=== PATIENT | female | born 1940 | race Caucasian/White ===

== ENCOUNTER 2020-03-10 06:03 | Inpatient (IN) ==
[~2020-03-10 06:03] MED LIST: ASPIRIN 325 MG TABLET PO ONE; DIAZEPAM 5 MG TABLET PO ONE; MAGNESIUM SULF RIDER 2 GM in PREMIX 1 EACH IV PRN; POTASSIUM CHLORIDE RIDER 10 MEQ in PREMIX 1 EACH IV PRN; diphenhydrAMINE CAP 25 MG CAPSULE PO ONE
[2020-03-10] MEDS ORDERED: HEPARIN/NACL 0.9% 2 UNITS/ML 1,000 ML IV ONE (06:41)
[2020-03-10] MEDS ORDERED: ASPIRIN 325 MG TABLET ONE (06:48)
[2020-03-10] MEDS ORDERED: diphenhydrAMINE CAP 25 MG CAPSULE ONE (06:48)
[2020-03-10] MEDS ORDERED: DIAZEPAM 5 MG TABLET ONE (06:48)
[2020-03-10] MEDS: DEXTROSE 5% NACL 0.45% 1,000 ML IV SCH ×2 (06:49→15:54)
[2020-03-10] MEDS ORDERED: LIDOCAINE 1% 20 ML VIAL ONE (07:21)
[2020-03-10] MEDS ORDERED: NITROGLYCERIN DRIP 50 MG/250 ML BOTTLE IV ONE (07:21)
[2020-03-10] MEDS ORDERED: fentaNYL 100 MCG/2 ML VIAL ONE (07:21)
[2020-03-10] MEDS ORDERED: MIDAZOLAM 2 MG/2 ML VIAL ONE (07:21)
[2020-03-10] MEDS ORDERED: VERAPAMIL 5 MG/2 ML VIAL ONE (07:22)
[2020-03-10] MEDS ORDERED: ONDANSETRON 4 MG/2 ML VIAL ONE (07:29)
[2020-03-10] MEDS ORDERED: ENOXAPARIN 30 MG/0.3 ML SYRINGE ONE (07:45)
[2020-03-10] MEDS ORDERED: TIROFIBAN 5,000 MCG/100 ML PREMIX IV ONE (07:55)
[2020-03-10] MEDS ORDERED: NITROPRUSSIDE 50 MG/2 ML VIAL ONE (08:15)
[2020-03-10] MEDS ORDERED: MORPHINE 10 MG/1 ML VIAL ONE (08:18)
[2020-03-10] MEDS ORDERED: CLOPIDOGREL 300 MG TABLET ONE (08:29)
[2020-03-10] MEDS ORDERED: NITROGLYCERIN SL 0.4 MG TABLET SL PRN (09:00)
[2020-03-10] MEDS ORDERED: PNEUMOCOCCAL VACCINE (13 VALENT) 0.5 ML SYRINGE IM ONE (09:28)
[2020-03-10] MEDS ORDERED: NOREPINEPHRINE 8 MG in SODIUM CHLORIDE 0.9% 242 ML IV PRN (09:47)
[2020-03-10] MEDS ORDERED: SODIUM CHLORIDE 0.9% 500 ML IV ONE (09:47)
[2020-03-10] MEDS ORDERED: SODIUM CHLORIDE 0.9% 1,000 ML IV ONE (10:00)
[2020-03-10] MEDS ORDERED: ALUMINUM/MAGNES/SIMETH MAX STR 30 ML UDCUP PO PRN (10:09)
[2020-03-10] MEDS: ALPRAZolam 0.25 MG TABLET PO SCH ×2 (10:16→20:23)
[2020-03-10] MEDS: LEVOTHYROXINE 88 MCG TABLET PO SCH (10:16)
[2020-03-10] MEDS: CARBIDOPA/LEVODOPA 25-100 MG TABLET PO SCH ×4 (10:16→20:23)
[2020-03-10] MEDS: ursodioL 300 MG CAPSULE PO SCH ×2 (10:21→20:23)
[2020-03-10] MEDS: PANTOPRAZOLE 40 MG TABLET PO SCH ×3 (10:21→20:23)
[2020-03-10] MEDS: FLUoxetine 20 MG CAPSULE PO SCH (10:22)
[2020-03-10] MEDS ORDERED: NITROGLYCERIN DRIP 50 MG/250 ML BOTTLE IV PRN (10:32)
[2020-03-10] MEDS: fentaNYL 100 MCG/2 ML VIAL IV PRN (11:50)
[2020-03-10] MEDS: MIRTAZAPINE 15 MG TABLET PO SCH (20:23)
[2020-03-10] MEDS: METOPROLOL TARTRATE 25 MG TABLET PO SCH (20:25)
[2020-03-11] MEDS: DEXTROSE 5% NACL 0.45% 1,000 ML IV SCH ×3 (03:10→22:59)
[2020-03-11 03:44] LABS: Basophils % 0.3 % (0.0-0.8); Eosinophils # 0.1 10*3/uL (0.0-0.87); Eosinophils % 0.6 % (0.00-10.9); Hematocrit 32.4 VOL% (35.7-47.0); Hemoglobin 10.2 GM/DL (12.0-16.0); Immature Granulocytes % 0.5 %; Immature Granulocytes Absolute 0.05 #; Lymphocytes # 2.3 10*3/uL (1.4-4.0); Lymphocytes % 23.1 % (21.3-54.2); Mean Corpuscular HGB Conc 31.5 GM/DL (32-36); Mean Corpuscular Volume 111.3 FL (87-102); Mean Platelet Volume 10.3 FL (9.6-12.0); Neutrophils % 62.5 % (38.7-73.9); Platelet Count 179 T/CUMM (130-400); Red Blood Count 2.91 MC/CUMM (3.8-5.5); Red Cell Distribution Width 13.5 % (9.3-17.3); White Blood Count 9.8 T/CUMM (4-12)
[2020-03-11 04:11] LABS: CKMB % 13.9 %; Osmolality,Calculated 276.8 MOS/KG (273-304); Potassium 4.2 MMOL/L (3.5-5.1)
[2020-03-11 04:13] LABS: Troponin I 14.7 NG/ML (0.00-0.045)
[2020-03-11 04:26] LABS: Macrocytosis Slight
[2020-03-11 04:27] LABS: Hypochromasia Slight; Platelet Estimate Adequate
[2020-03-11] MEDS: ONDANSETRON 4 MG/2 ML VIAL IV PRN ×3 (06:57→22:01)
[2020-03-11] MEDS: ALPRAZolam 0.25 MG TABLET PO SCH ×2 (08:40→21:40)
[2020-03-11 09:38] LABS: Albumin 2.8 G/DL (3.4-5.0); Bilirubin,Direct 0.12 MG/DL (0.0-0.20); Bilirubin,Indirect 0.3 MG/DL (0.0-1.0); Bilirubin,Total 0.4 MG/DL (0.2-1.0); Total Protein 5.9 G/DL (6.4-8.3)
[2020-03-11] MEDS: METOPROLOL TARTRATE 25 MG TABLET PO SCH (09:58)
[2020-03-11] MEDS: LEVOTHYROXINE 88 MCG TABLET PO SCH (10:26)
[2020-03-11] MEDS: CLOPIDOGREL 75 MG TABLET PO SCH (10:26)
[2020-03-11] MEDS: MULTIVITAMIN (CENTRUM) TABLET PO SCH (10:27)
[2020-03-11] MEDS: ASPIRIN CHEW 81 MG TABLET PO SCH (10:27)
[2020-03-11] MEDS: ursodioL 300 MG CAPSULE PO SCH ×2 (10:27→21:40)
[2020-03-11] MEDS: CARBIDOPA/LEVODOPA 25-100 MG TABLET PO SCH ×4 (10:27→21:40)
[2020-03-11] MEDS: FLUoxetine 20 MG CAPSULE PO SCH (10:29)
[2020-03-11] MEDS: PANTOPRAZOLE 40 MG TABLET PO SCH ×2 (10:30→21:40)
[2020-03-11] MEDS ORDERED: KETOROLAC 15 MG/1 ML VIAL IV ONE (11:26)
[2020-03-11 12:16] LABS: CKMB % 11.2 %
[2020-03-11 12:18] LABS: Troponin I 17.5 NG/ML (0.00-0.045)
[2020-03-11] MEDS ORDERED: MAGNESIUM HYDROXIDE SUSP 30 ML UDCUP PO PRN (15:56)
[2020-03-11] MEDS: IBUPROFEN 400 MG TABLET PO PRN (17:49)
[2020-03-11] MEDS ORDERED: METHOCARBAMOL 500 MG TABLET PO PRN (19:37)
[2020-03-11] MEDS: MIRTAZAPINE 15 MG TABLET PO SCH (21:40)
[2020-03-11] MEDS: ROSUVASTATIN 20 MG TABLET PO SCH (21:40)
[2020-03-11] MEDS: fentaNYL 100 MCG/2 ML VIAL IV PRN (22:03)
[2020-03-12 04:43] LABS: Basophils % 0.2 % (0.0-0.8); Eosinophils % 0.7 % (0.00-10.9); Hematocrit 30.4 VOL% (35.7-47.0); Hemoglobin 9.9 GM/DL (12.0-16.0); Immature Granulocytes % 0.9 %; Lymphocytes % 24.5 % (21.3-54.2); Mean Corpuscular HGB Conc 32.6 GM/DL (32-36); Mean Corpuscular Volume 108.2 FL (87-102); Mean Platelet Volume 11.2 FL (9.6-12.0); Neutrophils % 59.7 % (38.7-73.9); Platelet Count 127 T/CUMM (130-400); Red Blood Count 2.81 MC/CUMM (3.8-5.5); Red Cell Distribution Width 13.4 % (9.3-17.3); White Blood Count 8.9 T/CUMM (4-12)
[2020-03-12 04:44] LABS: Eosinophils # 0.1 10*3/uL (0.0-0.87); Immature Granulocytes Absolute 0.08 #; Lymphocytes # 2.2 10*3/uL (1.4-4.0)
[2020-03-12 04:55] LABS: Calcium 7.7 MG/DL (8.5-10.1); Osmolality,Calculated 272.1 MOS/KG (273-304); Potassium 4.3 MMOL/L (3.5-5.1)
[2020-03-12 05:09] LABS: CKMB % 6.7 %
[2020-03-12 05:10] LABS: Troponin I 15.6 NG/ML (0.00-0.045)
[2020-03-12] MEDS: DEXTROSE 5% NACL 0.45% 1,000 ML IV SCH (08:08)
[2020-03-12] MEDS: LEVOTHYROXINE 88 MCG TABLET PO SCH (09:36)
[2020-03-12] MEDS: PANTOPRAZOLE 40 MG TABLET PO SCH ×2 (09:36→20:23)
[2020-03-12] MEDS: CLOPIDOGREL 75 MG TABLET PO SCH (09:36)
[2020-03-12] MEDS: ursodioL 300 MG CAPSULE PO SCH ×2 (09:36→20:25)
[2020-03-12] MEDS: FLUoxetine 20 MG CAPSULE PO SCH (09:36)
[2020-03-12] MEDS: ASPIRIN CHEW 81 MG TABLET PO SCH (09:36)
[2020-03-12] MEDS: ALPRAZolam 0.25 MG TABLET PO SCH ×2 (09:36→20:23)
[2020-03-12] MEDS: MULTIVITAMIN (CENTRUM) TABLET PO SCH (09:36)
[2020-03-12] MEDS: CARBIDOPA/LEVODOPA 25-100 MG TABLET PO SCH ×4 (09:36→20:23)
[2020-03-12] MEDS: IBUPROFEN 400 MG TABLET PO PRN (18:44)
[2020-03-12] MEDS: ROSUVASTATIN 20 MG TABLET PO SCH (20:23)
[2020-03-12] MEDS: MIRTAZAPINE 15 MG TABLET PO SCH (20:23)
[2020-03-13 05:36] LABS: Basophils % 0.6 % (0.0-0.8); Eosinophils # 0.2 10*3/uL (0.0-0.87); Hematocrit 28.6 VOL% (35.7-47.0); Hemoglobin 9.2 GM/DL (12.0-16.0); Immature Granulocytes % 0.7 %; Immature Granulocytes Absolute 0.05 #; Lymphocytes # 1.7 10*3/uL (1.4-4.0); Lymphocytes % 23.4 % (21.3-54.2); Mean Corpuscular HGB Conc 32.2 GM/DL (32-36); Mean Corpuscular Volume 110.4 FL (87-102); Monocytes % 15.1 % (1.7-12.7); NRBC # 0.02 10*3/uL; Neutrophils % 57.2 % (38.7-73.9); Platelet Count 154 T/CUMM (130-400); Red Blood Count 2.59 MC/CUMM (3.8-5.5); Red Cell Distribution Width 13.9 % (9.3-17.3); White Blood Count 7.1 T/CUMM (4-12)
[2020-03-13 05:57] LABS: Calcium 7.8 MG/DL (8.5-10.1); Osmolality,Calculated 282.3 MOS/KG (273-304); Potassium 4.2 MMOL/L (3.5-5.1)
[2020-03-13 06:07] LABS: Hypochromasia 1+; Platelet Estimate Adequate
[2020-03-13 08:24] VITALS: BP 116/58
[2020-03-13] MEDS: ASPIRIN CHEW 81 MG TABLET PO SCH (09:29)
[2020-03-13] MEDS: MULTIVITAMIN (CENTRUM) TABLET PO SCH (09:29)
[2020-03-13] MEDS: LEVOTHYROXINE 88 MCG TABLET PO SCH (09:29)
[2020-03-13] MEDS: CLOPIDOGREL 75 MG TABLET PO SCH (09:29)
[2020-03-13] MEDS: PANTOPRAZOLE 40 MG TABLET PO SCH (09:29)
[2020-03-13] MEDS: FLUoxetine 20 MG CAPSULE PO SCH (09:29)
[2020-03-13] MEDS: ursodioL 300 MG CAPSULE PO SCH (09:29)
[2020-03-13] MEDS: ALPRAZolam 0.25 MG TABLET PO SCH (09:29)
[2020-03-13] MEDS: CARBIDOPA/LEVODOPA 25-100 MG TABLET PO SCH (09:30)
== END 2020-03-13 10:49 | disposition home or self-care (01) | DRG 246 ==
LOC: N.CL 06:03 → N.ICU 08:59 → N.TELES 03-12 12:08
PROVIDERS: ADMIT Internal Medicine Interventional Cardiology; ATTEND Internal Medicine Interventional Cardiology
PROC: CLCCHCL (ICD-10-PCS; 2020-03-10 08:45)